=== PATIENT | female | born 1985 | race Caucasian/White ===

== ENCOUNTER 2017-01-02 12:45 | Inpatient (IN) ==
[2017-01-02] MEDS ORDERED: Aspirin 81 MG TAB.CHEW PO ONE (13:06)
[2017-01-02] MEDS ORDERED: 0.9 % Sodium Chloride 500 ML IVC ONE (13:06)
[2017-01-02] MEDS ORDERED: methylPREDNISolone 125 MG/2 ML VIAL IVP ONE (13:08)
[2017-01-02] MEDS ORDERED: Ipratropium/Albuterol Neb 3 ML IH ONE (13:09)
--- NOTE | 2017-01-02 13:13 | Emergency Department Note ---
Disposition Clinical Impression: SOB (shortness of breath), Elevated d-dimer, Elevated troponin Chest pain Qualifiers: Chest pain type: chest pain on breathing Qualified Code(s): R07.1 - Chest pain on breathing Disposition: Admitted As Inpatient Condition: Serious Time of Disposition: 14:49 Chest Pain HPI - General Chief Complaint: ED Chest Pain Stated Complaint: NURIS/ chest pain Time Seen by Provider: 01/02/17 12:48 Source: patient Vital Signs Reviewed: Yes Nursing Notes Reviewed: Yes - History of Present Illness HPI Narrative: Patient is a 31-year-old female with no past cardiac history presents with chest pain that started 12 hours ago and has history of asthma. Patient states that she started having an low sternal chest pain then started coughing. Patient states her chest pain is sharp 10 out of 10 without radiation to her neck or arms. Patient states her pain is worse with walking and better at rest. Patient states she feels short of breath with walking as well. Patient states that she has not taken her inhaler because she cannot find it. Patient states she was placed on control 2 months ago. Patient is on no other medications patient denies fever. Severity scale (1-10): 0 - Related Data Home Medications Medication Instructions Recorded Confirmed Albuterol Sulfate [Proair Hfa] 2 puff IH Q6H PRN 01/02/17 01/02/17 Beclomethasone Diprop 40mcg [Qvar 2 puff IH DAILY 01/02/17 01/02/17 40 mcg] Cetirizine HCl [Zyrtec] 10 mg PO DAILY 01/02/17 01/02/17 FLUoxetine HCl [Prozac] 20 mg PO DAILY 01/02/17 01/02/17 Fluticasone Propionate Nasal 2 spr NS DAILY 01/02/17 01/02/17 [Flonase] Lisinopril-HCTZ 10-12.5 [Prinzide 1 tab PO DAILY 01/02/17 01/02/17 10-12.5] Methocarbamol [Robaxin] 500 mg PO HS PRN 01/02/17 01/02/17 Norgestimate-Ethinyl Estradiol 1 tab PO DAILY 01/02/17 01/02/17 [Sprintec 28 Day Tablet] Topiramate [Topamax] 25 mg PO DAILY 01/02/17 01/02/17 Tramadol HCl [Ultram] 50 mg PO Q6H PRN 01/02/17 01/02/17 Allergies Allergy/AdvReac Type Severity Reaction Status Date / Time Penicillins Allergy Anaphylaxis Verified 01/02/17 14:08 All systems ED: reviewed and negative except as stated. Review of Systems: As Per HPI Constitutional: Denies: fever, chills, weakness Eyes: Denies: vision change ENT ED: Reports: congestion. Denies: ear pain Cardiovascular: Reports: chest pain, dyspnea on exertion. Denies: palpitations , syncope Respiratory: Reports: cough, dyspnea. Denies: wheezes, sputum production Gastrointestinal: Denies: abdominal pain, nausea, vomiting, diarrhea, hematemesis Genitourinary: Denies: urgency, dysuria Musculoskeletal: Denies: back pain, neck pain Integumentary: Denies: rash, abrasion Neurological: Denies: headache, weakness Psychiatric: Reports: anxiety. 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 - Social History Smoking Status: Never smoker Alcohol use: Reports: none Drug use: Reports: none Physical Exam - General Limitations: no limitations General appearance: alert, in no apparent distress - Head Head exam: atraumatic, normocephalic, normal inspection - Eye Eye exam: Present: normal appearance, PERRL, EOMI - ENT ENT exam: normal exam, normal oropharynx, mucous membranes moist - Neck Neck exam: Present: normal inspection, full ROM, trachea midline - Chest Chest inspection: Present: normal inspection, symmetric chest wall rise - Respiratory Respiratory exam: Present: other (No wheezing but lungs sound increased turbulence) - Cardiovascular Cardiovascular exam: Present: tachycardia, normal heart sounds - Abdominal Exam Abdominal exam: Present: soft, Non-Tender. Absent: tenderness, distention, guarding, rebound, rigidity - Extremities Exam Extremities exam: Present: normal inspection, full ROM, normal capillary refill. Absent: tenderness, pedal edema, calf tenderness - Back Exam Back exam: Present: normal inspection, full ROM. Absent: tenderness, CVA tenderness (R), CVA tenderness (L) - Neurological Exam Neurological exam: Present: alert, oriented X3, CN II-XII intact - Psychiatric Psychiatric exam: Present: normal affect, normal mood Course - Reevaluation(s) Reevaluation #1: Patient seen and examined, and DuoNeb's ordered, chest x-ray and ACS workup ordered. D-dimer ordered. O2 sats greater than 95 on room air. Time: 13:15 Reevaluation #2: Patient patient is doing well, workup continues patient's receiving fluids O2 sat greater than 95% on room air Time: 13:50 Reevaluation #3: D-dimer 03324 and troponin 0.18. Patient continues to be conversational dyspnea and says chest pain but 2/10 currently, patient's O2 sat is 97% Time: 14:30 - Consultations Consultation #1: Dr. Choi paper box cutter has accepted patient for admission to the ICU at 1448 hrs. Time: 14:49 Vital Signs Temperature 98.5 F 01/02/17 12:47 Pulse Rate 120 01/02/17 12:47 Respiratory Rate 22 01/02/17 12:47 Blood Pressure 134/97 01/02/17 12:47 O2 Sat by Pulse Oximetry 96 01/02/17 12:47 Temperature 97.7 F 01/02/17 19:40 Pulse Rate 81 01/02/17 21:00 Respiratory Rate 18 01/02/17 21:00 Blood Pressure 115/75 01/02/17 21:00 O2 Sat by Pulse Oximetry 97 01/02/17 21:00 Oxygen Delivery Oxygen Delivery Nasal Cannula Chest Pain - [facility] Narrative Medical decision making narrative: Patient with acute onset of sinus tachycardia chest pain and shortness of breath concerning for ACS/PE/aortic dissection, pneumonia, pneumothorax. Patient is tachycardic at rest and has conversational dyspnea. Only mathis into patient's history is possibly her control which was started 2 months ago. Otherwise patient has no prior medical history or risk factors except for hypertension. Patient is more concerning for PE at this time. We will perform ACS workup and run a d-dimer. Patient's d-dimer was elevated 11,709, and patient's troponin elevated 0.18. Patient continues to be conversationally dyspneic. Start patient on heparin and send patient for CTA. Disposition is to admit. Patient has bilateral PEs, patient will be admitted to ICU Patient was accepted for admittance to ICU by Dr. Choi the Exercise Equipment Specialist. - Lab Data Lab results reviewed: Yes I reviewed the patient's lab results. Lab results narrative: Short CBC 01/02/17 Range/Units 13:03 WBC 10.3 (4.3-11.1) K/mcL Hgb 14.0 (11.5-15.4) g/dL Hct 42.0 (35.3-44.9) % Plt Count 298 (140-400) K/mcL Neutrophils # 7.2 (1.6-8.9) K/mcL BMP 01/02/17 Range/Units 13:03 Sodium 138 (136-145) mEq/L Potassium 3.9 (3.5-4.5) mEq/L Chloride 107 (98-109) mEq/L Carbon Dioxide 23 (19-29) mEq/L BUN 14 (7-20) mg/dL Creatinine 1.05 (0.57-1.11) mg/dL Glucose 134 H (70-99) mg/dL Calcium 9.4 (8.6-10.8) mg/dL Cardiac Enzymes 01/02/17 Range/Units 13:03 Troponin I 0.18 H* (0-0.03) ng/mL Result diagrams: 01/02/17 14:05 01/02/17 13:03 Lab Results 01/02/17 01/02/17 01/02/17 Range/Units 13:03 13:03 13:03 WBC 10.3 (4.3-11.1) K/mcL RBC 4.95 (3.82-4.97) M/mcL Hgb 14.0 (11.5-15.4) g/dL Hct 42.0 (35.3-44.9) % MCV 84.8 (83.0-100.0) fL MCH 28.3 (28.0-33.3) pg MCHC 33.3 (31.6-35.5) g/dL RDW 12.1 (11.5-14.5) % Plt Count 298 (140-400) K/mcL MPV 10.1 (9.4-12.4) fL Immature Gran % 0.2 (0-4) % Seg Neutrophils % 69.4 % Lymphocytes % 22.4 % Monocytes % 5.7 % Eosinophils % 2.0 % Basophils % 0.3 % Neutrophils # 7.2 (1.6-8.9) K/mcL Lymphocytes # 2.3 (0.6-4.6) K/mcL Monocytes # 0.6 (0.0-1.3) K/mcL Eosinophils # 0.2 (0.0-0.6) K/mcL Basophils # 0.0 (0.0-0.2) K/mcL PT (9.4-12.1) Seconds INR APTT (26.0-36.0) Seconds D-Dimer (0-500) ng/mLFEU Sodium 138 (136-145) mEq/L Potassium 3.9 (3.5-4.5) mEq/L Chloride 107 (98-109) mEq/L Carbon Dioxide 23 (19-29) mEq/L BUN 14 (7-20) mg/dL Creatinine 1.05 (0.57-1.11) mg/dL Est GFR ( Amer) > 60 (> 60) Est GFR (Non-Af Amer) > 60 (> 60) BUN/Creatinine Ratio 13 (6-26) Glucose 134 H (70-99) mg/dL Calculated Osmolality 288 (280-300) Calcium 9.4 (8.6-10.8) mg/dL Phosphorus 1.8 L (2.3-4.7) mg/dL Magnesium 2.1 (1.6-2.6) mg/dL Troponin I 0.18 H* (0-0.03) ng/mL Serum , Qual (Negative) 01/02/17 01/02/17 01/02/17 Range/Units 13:03 14:05 14:05 WBC 10.7 (4.3-11.1) K/mcL RBC 4.70 (3.82-4.97) M/mcL Hgb 13.1 (11.5-15.4) g/dL Hct 40.0 (35.3-44.9) % MCV 85.1 (83.0-100.0) fL MCH 27.9 L (28.0-33.3) pg MCHC 32.8 (31.6-35.5) g/dL RDW 12.1 (11.5-14.5) % Plt Count 277 (140-400) K/mcL MPV 9.9 (9.4-12.4) fL Immature Gran % (0-4) % Seg Neutrophils % % Lymphocytes % % Monocytes % % Eosinophils % % Basophils % % Neutrophils # (1.6-8.9) K/mcL Lymphocytes # (0.6-4.6) K/mcL Monocytes # (0.0-1.3) K/mcL Eosinophils # (0.0-0.6) K/mcL Basophils # (0.0-0.2) K/mcL PT (9.4-12.1) Seconds INR APTT (26.0-36.0) Seconds D-Dimer 77412 H (0-500) ng/mLFEU Sodium (136-145) mEq/L Potassium (3.5-4.5) mEq/L Chloride (98-109) mEq/L Carbon Dioxide (19-29) mEq/L BUN (7-20) mg/dL Creatinine (0.57-1.11) mg/dL Est GFR ( Amer) (> 60) Est GFR (Non-Af Amer) (> 60) BUN/Creatinine Ratio (6-26) Glucose (70-99) mg/dL Calculated Osmolality (280-300) Calcium (8.6-10.8) mg/dL Phosphorus (2.3-4.7) mg/dL Magnesium (1.6-2.6) mg/dL Troponin I (0-0.03) ng/mL Serum , Qual Negative (Negative) 01/02/17 Range/Units 14:05 WBC (4.3-11.1) K/mcL RBC (3.82-4.97) M/mcL Hgb (11.5-15.4) g/dL Hct (35.3-44.9) % MCV (83.0-100.0) fL MCH (28.0-33.3) pg MCHC (31.6-35.5) g/dL RDW (11.5-14.5) % Plt Count (140-400) K/mcL MPV (9.4-12.4) fL Immature Gran % (0-4) % Seg Neutrophils % % Lymphocytes % % Monocytes % % Eosinophils % % Basophils % % Neutrophils # (1.6-8.9) K/mcL Lymphocytes # (0.6-4.6) K/mcL Monocytes # (0.0-1.3) K/mcL Eosinophils # (0.0-0.6) K/mcL Basophils # (0.0-0.2) K/mcL PT 11.1 (9.4-12.1) Seconds INR 1.0 APTT 28.0 (26.0-36.0) Seconds D-Dimer (0-500) ng/mLFEU Sodium (136-145) mEq/L Potassium (3.5-4.5) mEq/L Chloride (98-109) mEq/L Carbon Dioxide (19-29) mEq/L BUN (7-20) mg/dL Creatinine (0.57-1.11) mg/dL Est GFR ( Amer) (> 60) Est GFR (Non-Af Amer) (> 60) BUN/Creatinine Ratio (6-26) Glucose (70-99) mg/dL Calculated Osmolality (280-300) Calcium (8.6-10.8) mg/dL Phosphorus (2.3-4.7) mg/dL Magnesium (1.6-2.6) mg/dL Troponin I (0-0.03) ng/mL Serum , Qual (Negative) - Radiology Data Radiology results reviewed: Yes I reviewed the patient's radiology results. Chest X-Ray 01/02/17 13:06 IMPRESSION: 1. No active pulmonary disease. D/ / Ja Greenberg MD / Ja Greenberg MD Interpreting Provider: Ja Greenberg MD - EKG Data EKG attestation: Yes I reviewed and interpreted this EKG. EKG results narrative: EKG taken 01/02/2017 at 1252 hrs. shows a sinus tachycardia with no acute ST elevations or depressions in the leads, QRS widening or QT prolongation. No previous EKG for comparison. T-wave inversion in lead 3. Repeat EKG taken at 1347 hrs. shows sinus rhythm at 91 beats a minute alea elevations or depressions A leads no QRS widening or QT prolongation. Repeat EKG taken at 1520 and hours shows sinus tachycardia at 108 beats a minute no acute ST elevations any leads no QRS widening or QT prolongation there is T-wave inversion in lead 3 seen in all 3 EKGs. Heart Score - Score History: Slightly Suspicious EKG: Non Specific repolarisation Disturbance Age: Less than 45 Risk Factors: No risk factors known Troponin: Less than normal limit HEART Score Total: 1
[2017-01-02 13:16] LABS: Basophils % 0.3 %; Eosinophils # 0.2 K/mcL (0.0-0.6); Immature Granulocytes % 0.2 % (0-4); Lymphocytes # 2.3 K/mcL (0.6-4.6); Lymphocytes % 22.4 %; Mean Corpuscular HGB Conc 33.3 g/dL (31.6-35.5); Mean Corpuscular Hemoglobin 28.3 pg (28.0-33.3); Mean Corpuscular Volume 84.8 fL (83.0-100.0); Mean Platelet Volume 10.1 fL (9.4-12.4); Monocytes # 0.6 K/mcL (0.0-1.3); Monocytes % 5.7 %; Neutrophils # 7.2 K/mcL (1.6-8.9); Platelet Count 298 K/mcL (140-400); Red Blood Count 4.95 M/mcL (3.82-4.97); Red Cell Distribution Width 12.1 % (11.5-14.5); Segmented Neutrophils % 69.4 %
[2017-01-02 13:27] LABS: BUN/Creatinine Ratio 13 (6-26); Blood Urea Nitrogen 14 mg/dL (7-20); Calcium 9.4 mg/dL (8.6-10.8); Carbon Dioxide 23 mEq/L (19-29); Chloride 107 mEq/L (98-109); Glucose 134 mg/dL (70-99); Osmolality,Calculated 288 (280-300); Potassium 3.9 mEq/L (3.5-4.5); Sodium 138 mEq/L (136-145); eGFR For African Americans > 60 (> 60); eGFR For Non-African Americans > 60 (> 60)
--- NOTE | 2017-01-02 13:41 | Emergency Department Note ---
Disposition Clinical Impression: SOB (shortness of breath), Elevated d-dimer, Elevated troponin Chest pain Qualifiers: Chest pain type: other chest pain Qualified Code(s): R07.89 - Other chest pain Disposition: Admitted As Inpatient Condition: Serious General Adult HPI - General Chief complaint: ED Chest Pain Stated complaint: NURIS/ chest pain Time Seen by Provider: 01/02/17 12:48 Source: patient Limitations: no limitations Nursing Notes Reviewed: Yes Vital Signs Reviewed: Yes - History of Present Illness Pain Scale: 0 - Related Data Home Medications Medication Instructions Recorded Confirmed Albuterol Sulfate [Proair Hfa] 2 puff IH Q6H PRN 01/02/17 01/02/17 Beclomethasone Diprop 40mcg [Qvar 2 puff IH DAILY 01/02/17 01/02/17 40 mcg] Cetirizine HCl [Zyrtec] 10 mg PO DAILY 01/02/17 01/02/17 FLUoxetine HCl [Prozac] 20 mg PO DAILY 01/02/17 01/02/17 Fluticasone Propionate Nasal 2 spr NS DAILY 01/02/17 01/02/17 [Flonase] Lisinopril-HCTZ 10-12.5 [Prinzide 1 tab PO DAILY 01/02/17 01/02/17 10-12.5] Methocarbamol [Robaxin] 500 mg PO HS PRN 01/02/17 01/02/17 Norgestimate-Ethinyl Estradiol 1 tab PO DAILY 01/02/17 01/02/17 [Sprintec 28 Day Tablet] Topiramate [Topamax] 25 mg PO DAILY 01/02/17 01/02/17 Tramadol HCl [Ultram] 50 mg PO Q6H PRN 01/02/17 01/02/17 Allergies Allergy/AdvReac Type Severity Reaction Status Date / Time Penicillins Allergy Anaphylaxis Verified 01/02/17 14:08 Constitutional: Denies: fever, chills, weakness Eyes: Denies: vision change ENT ED: Reports: congestion. Denies: ear pain Cardiovascular: Reports: chest pain, dyspnea on exertion. Denies: palpitations , syncope Respiratory: Reports: cough, dyspnea. Denies: wheezes, sputum production Gastrointestinal: Denies: abdominal pain, nausea, vomiting, diarrhea, hematemesis Genitourinary: Denies: urgency, dysuria Musculoskeletal: Denies: back pain, neck pain Integumentary: Denies: rash, abrasion Neurological: Denies: headache, weakness Psychiatric: Reports: anxiety. 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 - Social History Smoking Status: Never smoker Smokeless Tobacco Status: No Alcohol use: Reports: none Drug use: Reports: none Physical Exam - General Limitations: no limitations General appearance: alert, in no apparent distress Course Vital Signs Temperature 98.5 F 01/02/17 12:47 Pulse Rate 120 01/02/17 12:47 Respiratory Rate 22 01/02/17 12:47 Blood Pressure 134/97 01/02/17 12:47 O2 Sat by Pulse Oximetry 96 01/02/17 12:47 Temperature 98.5 F 01/02/17 12:47 Pulse Rate 116 01/02/17 14:55 Respiratory Rate 22 01/02/17 14:55 Blood Pressure 123/87 01/02/17 14:55 O2 Sat by Pulse Oximetry 95 01/02/17 14:55 Oxygen Delivery Oxygen Delivery Room Air Medical Decision Making - MDM Narrative Medical decision making narrative: I examined this patient and my medical decision-making was reviewed with the Resident Physician. I agree with the documented findings, disposition and treatment plan as described except to the extent set forth below. Patient was seen and evaluated by Dr. Trammell and myself, I agree with his evaluation and management plan, supervised the care of the patient's stay. Patient was in today she has had some anxiousness feeling also some chest discomfort last 2 days no history of cardiac disease in the past no history of pulmonary embolism. She is tachycardic, and do a d-dimer on her since her well's criteria is low risk but she cannot be PEERC'd out, EKG chest x-ray and then reassess. She did get aspirin here has no calf tenderness. 1350 hrs.: Patient's troponin is negative her d-dimer is elevated also I think she probably does have a PE. In over the CT of her chest. And then she will need admission. Chest X-Ray 01/02/17 13:06 IMPRESSION: 1. No active pulmonary disease. D/ / Ja Greenberg MD / Ja Greenberg MD Interpreting Provider: Ja Greenberg MD 1440 hrs.: Patient's CTA is positive for large PE. We are started heparin on her. We will speak to the appellate law clerk and safety physician on her. She is in agreement with this plan. Impression is dyspnea with pulmonary embolism. Patient's critical care time exactly separately billable procedures is 50 minutes. 1500 hrs.: ICU team is coming down and seen the patient. They are agreeing with the admission. Asked add-on BNP, and also a stat echo, we spoke with the cardiac [place] [facility] for the echo. Spoke with cardiology, Dr. Lazaro Daley, and he is happy to read the echocardiogram. - Lab Data Result diagrams: 01/02/17 14:05 01/02/17 13:03 Lab Results 01/02/17 01/02/17 01/02/17 Range/Units 13:03 13:03 13:03 WBC 10.3 (4.3-11.1) K/mcL RBC 4.95 (3.82-4.97) M/mcL Hgb 14.0 (11.5-15.4) g/dL Hct 42.0 (35.3-44.9) % MCV 84.8 (83.0-100.0) fL MCH 28.3 (28.0-33.3) pg MCHC 33.3 (31.6-35.5) g/dL RDW 12.1 (11.5-14.5) % Plt Count 298 (140-400) K/mcL MPV 10.1 (9.4-12.4) fL Immature Gran % 0.2 (0-4) % Seg Neutrophils % 69.4 % Lymphocytes % 22.4 % Monocytes % 5.7 % Eosinophils % 2.0 % Basophils % 0.3 % Neutrophils # 7.2 (1.6-8.9) K/mcL Lymphocytes # 2.3 (0.6-4.6) K/mcL Monocytes # 0.6 (0.0-1.3) K/mcL Eosinophils # 0.2 (0.0-0.6) K/mcL Basophils # 0.0 (0.0-0.2) K/mcL PT (9.4-12.1) Seconds INR APTT (26.0-36.0) Seconds D-Dimer (0-500) ng/mLFEU Sodium 138 (136-145) mEq/L Potassium 3.9 (3.5-4.5) mEq/L Chloride 107 (98-109) mEq/L Carbon Dioxide 23 (19-29) mEq/L BUN 14 (7-20) mg/dL Creatinine 1.05 (0.57-1.11) mg/dL Est GFR ( Amer) > 60 (> 60) Est GFR (Non-Af Amer) > 60 (> 60) BUN/Creatinine Ratio 13 (6-26) Glucose 134 H (70-99) mg/dL Calculated Osmolality 288 (280-300) Calcium 9.4 (8.6-10.8) mg/dL Troponin I 0.18 H* (0-0.03) ng/mL Serum , Qual (Negative) 01/02/17 01/02/17 01/02/17 Range/Units 13:03 14:05 14:05 WBC 10.7 (4.3-11.1) K/mcL RBC 4.70 (3.82-4.97) M/mcL Hgb 13.1 (11.5-15.4) g/dL Hct 40.0 (35.3-44.9) % MCV 85.1 (83.0-100.0) fL MCH 27.9 L (28.0-33.3) pg MCHC 32.8 (31.6-35.5) g/dL RDW 12.1 (11.5-14.5) % Plt Count 277 (140-400) K/mcL MPV 9.9 (9.4-12.4) fL Immature Gran % (0-4) % Seg Neutrophils % % Lymphocytes % % Monocytes % % Eosinophils % % Basophils % % Neutrophils # (1.6-8.9) K/mcL Lymphocytes # (0.6-4.6) K/mcL Monocytes # (0.0-1.3) K/mcL Eosinophils # (0.0-0.6) K/mcL Basophils # (0.0-0.2) K/mcL PT (9.4-12.1) Seconds INR APTT (26.0-36.0) Seconds D-Dimer 74008 H (0-500) ng/mLFEU Sodium (136-145) mEq/L Potassium (3.5-4.5) mEq/L Chloride (98-109) mEq/L Carbon Dioxide (19-29) mEq/L BUN (7-20) mg/dL Creatinine (0.57-1.11) mg/dL Est GFR ( Amer) (> 60) Est GFR (Non-Af Amer) (> 60) BUN/Creatinine Ratio (6-26) Glucose (70-99) mg/dL Calculated Osmolality (280-300) Calcium (8.6-10.8) mg/dL Troponin I (0-0.03) ng/mL Serum , Qual Negative (Negative) 01/02/17 Range/Units 14:05 WBC (4.3-11.1) K/mcL RBC (3.82-4.97) M/mcL Hgb (11.5-15.4) g/dL Hct (35.3-44.9) % MCV (83.0-100.0) fL MCH (28.0-33.3) pg MCHC (31.6-35.5) g/dL RDW (11.5-14.5) % Plt Count (140-400) K/mcL MPV (9.4-12.4) fL Immature Gran % (0-4) % Seg Neutrophils % % Lymphocytes % % Monocytes % % Eosinophils % % Basophils % % Neutrophils # (1.6-8.9) K/mcL Lymphocytes # (0.6-4.6) K/mcL Monocytes # (0.0-1.3) K/mcL Eosinophils # (0.0-0.6) K/mcL Basophils # (0.0-0.2) K/mcL PT 11.1 (9.4-12.1) Seconds INR 1.0 APTT 28.0 (26.0-36.0) Seconds D-Dimer (0-500) ng/mLFEU Sodium (136-145) mEq/L Potassium (3.5-4.5) mEq/L Chloride (98-109) mEq/L Carbon Dioxide (19-29) mEq/L BUN (7-20) mg/dL Creatinine (0.57-1.11) mg/dL Est GFR ( Amer) (> 60) Est GFR (Non-Af Amer) (> 60) BUN/Creatinine Ratio (6-26) Glucose (70-99) mg/dL Calculated Osmolality (280-300) Calcium (8.6-10.8) mg/dL Troponin I (0-0.03) ng/mL Serum , Qual (Negative)
[2017-01-02] MEDS ORDERED: *HR* Heparin 5,000 UNIT/ML VIAL IVP ONE (13:57)
[2017-01-02] MEDS ORDERED: *HR* Heparin 5,000 UNIT/ML VIAL IVP PRN ×2 (13:57)
[2017-01-02] MEDS ORDERED: *HR* Morphine 2 MG/ML SYRINGE IVP PRN (14:02)
[2017-01-02] MEDS ORDERED: Ondansetron 4 MG/2 ML VIAL IVP ONE (14:03)
[2017-01-02 14:17] LABS: Prothrombin Time 11.1 Seconds (9.4-12.1)
[2017-01-02 14:19] LABS: Hemoglobin 13.1 g/dL (11.5-15.4); Mean Corpuscular HGB Conc 32.8 g/dL (31.6-35.5); Mean Corpuscular Hemoglobin 27.9 pg (28.0-33.3); Mean Corpuscular Volume 85.1 fL (83.0-100.0); Mean Platelet Volume 9.9 fL (9.4-12.4); Platelet Count 277 K/mcL (140-400); Red Cell Distribution Width 12.1 % (11.5-14.5)
[2017-01-02] MEDS: Heparin 25,000 UNIT/500 ML D5W 25,000 UNIT/500 ML MLS IVC SCH (14:45)
[2017-01-02] MEDS ORDERED: *HR* HYDROmorphone (PF) 1 MG/ML SYRINGE IVP ONE (15:26)
[2017-01-02] MEDS ORDERED: Naloxone 0.4 MG/ML INJ IVP PRN (15:36)
--- NOTE | 2017-01-02 15:49 | Electrocardiograph Report ---
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
--- NOTE | 2017-01-02 15:49 | Pulmonology History & Physical ---
<Lonny Shelley - Last Filed: 01/02/17 15:46> Date of Encounter: 01/02/17 Time of Encounter: 15:46 Assessment and Plan (1) Pulmonary embolism Current visit: Yes Status: Acute Patient is having shortness of breath, tachycardia, dyspnea at rest, and worsened during conversation, but is hemodynamically stable at this time. According to CT angiogram of the chest, this patient has bilateral pulmonary emboli. She is currently on a heparin drip. We will keep her on this, do coagulation studies to check for prothrombotic conditions. We will monitor her in the intensive care unit overnight. She does have an elevated troponin, evidence of right ventricular strain on echocardiogram. We will continue to trend her troponin every 6 hours. We have also ordered a BNP now, and we will repeat this in the morning. We are keeping her nothing by mouth overnight and will start IV Protonix for GI prophylaxis. We are also ordering bilateral Doppler ultrasound of the lower extremities. Qualifiers: Pulmonary embolism type: other Chronicity: acute Acute cor pulmonale presence: with acute cor pulmonale Qualified Code(s): I26.09 - Other pulmonary embolism with acute cor pulmonale (2) Elevated troponin Current visit: Yes Status: Acute See above (3) SOB (shortness of breath) Current visit: Yes Status: Acute This is secondary to the pulmonary embolism. She is currently on nasal cannula. We will adjust her oxygen based on her symptoms. (4) Chest pain Current visit: Yes Status: Acute See above Qualifiers: Chest pain type: chest pain on breathing Qualified Code(s): R07.1 - Chest pain on breathing; R07.81 - Pleurodynia (5) Elevated d-dimer Current visit: Yes Status: Acute See above History of Present Illness Chief complaint: Shortness of breath, chest pain HPI: Ms. Alvarenga is a 31 year old female with no past medical history presented to the emergency department today after experiencing 3 days of shortness of breath. She states that nothing like this has ever happened before. She does complain of some retrosternal chest pain that is more prominent upon inhalation. She denies any past medical history of blood clots, does admit to being on estrogen oral contraceptives, admits to recent travel of 3 hours to her family on Saturday. She states that the shortness of breath started immediately after arriving home after Saturday travel. Past Med Surg Social Fam HX - Past Medical History Medical history: no medical history Psychiatric history: no psych history - Social History Smoking Status: Never smoker Smokeless Tobacco Status: No Alcohol use: none Drug use: none Medications and Allergies Albuterol Sulfate [Proair Hfa] 2 puff IH Q6H PRN 01/02/17 [History] Beclomethasone Diprop 40mcg [Qvar 40 mcg] 2 puff IH DAILY 01/02/17 [History] Cetirizine HCl [Zyrtec] 10 mg PO DAILY 01/02/17 [History] FLUoxetine HCl [Prozac] 20 mg PO DAILY 01/02/17 [History] Fluticasone Propionate Nasal [Flonase] 2 spr NS DAILY 01/02/17 [History] Lisinopril-HCTZ 10-12.5 [Prinzide 10-12.5] 1 tab PO DAILY 01/02/17 [History] Methocarbamol [Robaxin] 500 mg PO HS PRN 01/02/17 [History] Norgestimate-Ethinyl Estradiol [Sprintec 28 Day Tablet] 1 tab PO DAILY 01/02/17 [History] Topiramate [Topamax] 25 mg PO DAILY 01/02/17 [History] Tramadol HCl [Ultram] 50 mg PO Q6H PRN 01/02/17 [History] Penicillins Allergy (Verified 01/02/17 14:08) Anaphylaxis All Systems: A 10-system review of systems was performed and is negative for pertinent findings except as documented above in the HPI. - Constitutional Constitutional: no fever(s), no headache(s), no lethargy - Cardiovascular Cardiovascular: chest pain (Retrosternal), dyspnea, dyspnea on exertion - Respiratory Respiratory: dyspnea, dyspnea on exertion, no cough, no hemoptysis - Gastrointestinal Gastrointestinal: no abdominal pain, no cramping, no diarrhea Physical Examination General appearance: appears uncomfortable, other (This is a 31-year-old female who is dyspneic at rest, and more so with conversation. She appears uncomfortable lying on the hospital bed.) Eyes: nonicteric ENT: oropharynx moist Neck: supple Effort: other (Appears to be in slight pain on inspiration) Inspection: normal Auscultation: bilateral: clear Cardiovascular: other (Telemetry: Sinus tachycardia with a rate of 115) Gastrointestinal: normoactive bowel sounds, soft, non-tender Integumentary: normal Extremities: no cyanosis, no edema, no clubbing, pink and warm, pulses normal, no ischemia or petechiae, other (No redness or warmth of the lower extremities. There is no tenderness to palpation of the calves. No palpable cords.) normal mental status, non-focal exam anxious Results - Laboratory Findings CBC and BMP: 01/02/17 14:05 01/02/17 13:03 PT/INR, D-dimer PT 11.1 Seconds (9.4-12.1) 01/02/17 14:05 D-Dimer 02444 ng/mLFEU (0-500) H 01/02/17 13:03 Abnormal lab findings: Abnormal lab results MCH 27.9 pg (28.0-33.3) L 01/02/17 14:05 D-Dimer 55965 ng/mLFEU (0-500) H 01/02/17 13:03 Glucose 134 mg/dL (70-99) H 01/02/17 13:03 Troponin I 0.18 ng/mL (0-0.03) H* 01/02/17 13:03 - Diagnostic Findings Chest x-ray: report reviewed, image reviewed CT scan - chest: report reviewed, image reviewed <Ashely Crowder - Last Filed: 01/02/17 16:45> Date of Encounter: 01/02/17 History of Present Illness HPI: Ms. Alvarenga is a 31 year old female All Systems: A 10-system review of systems was performed and is negative for pertinent findings except as documented above in the HPI. Physical Examination Vital Signs: Vital Signs, Last 4 Hours Resp BP 01/02/17 16:32 22 123/81 Results - Laboratory Findings CBC and BMP: 01/02/17 14:05 01/02/17 13:03 PT/INR, D-dimer PT 11.1 Seconds (9.4-12.1) 01/02/17 14:05 D-Dimer 96603 ng/mLFEU (0-500) H 01/02/17 13:03 Abnormal lab findings: Abnormal lab results MCH 27.9 pg (28.0-33.3) L 01/02/17 14:05 D-Dimer 36779 ng/mLFEU (0-500) H 01/02/17 13:03 Glucose 134 mg/dL (70-99) H 01/02/17 13:03 Troponin I 0.18 ng/mL (0-0.03) H* 01/02/17 13:03 - Attending Attestation I examined this patient and my medical decision-making was reviewed with the Resident Physician. I agree with the documented findings, disposition and treatment plan as described except to the extent set forth below. Patient seen and examined. I went to emergency room after her physician called to evaluate this patient. Labs, radiology, chart personally reviewed. 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 Patient still have dyspnea especially when she has a minimal activity. Reviewed the CAT scan and evidence of pulmonary embolism with pulmonary artery enlargement my reading and reviewed the echocardiogram at the bedside. I am concerned about this pulmonary embolism and explained to the patient gave her blood pressure started to drop then she will need thrombolytics and she understand that and also risks associated with that. Her blood clot could be related to her travel, however will need to do hypercoagulable workup. She is on heparin now and keep oxygen saturation around 92%. She will be monitored in ICU closely. Cardiovascular: stable blood pressure for now, she is tachycardic. GI: Nutrition per dietary and GI prophylaxis per routine Heme: DVT prophylaxis per routine. 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 ID: No evidence of infections Renal; urine out put and renal funtion reviewed Endorcine: blood glucose is monitored Lines: all lines checked and no evidence of infections Skin: skin care to prevent pressure ulcers per nursing routine care I spent 35 min of Critical Care time with this patient. It involved decision making of high complexity to assess, manipulate, and support vital organ system failure and/or to prevent further life threatening deterioration of the patient' s condition. The time involved in the performance of separately reportable procedures was not counted toward critical care time.
[2017-01-02] MEDS ORDERED: Calcium Gluconate 1,000 MG in D5% in Water 100 ML IVPB PRN (16:50)
[2017-01-02] MEDS ORDERED: Magnesium Sulfate 2 GM in D5% in Water 100 ML IVPB PRN (16:50)
[2017-01-02] MEDS ORDERED: Potassium Phosphate 44 MEQ in 0.9 % Sodium Chloride 250 ML IVPB PRN (16:50)
[2017-01-02] MEDS: *HR* Morphine 2 MG/ML SYRINGE IVP PRN ×2 (17:18→20:45)
[2017-01-02 18:48] LABS: Magnesium 2.1 mg/dL (1.6-2.6); Phosphorous 1.8 mg/dL (2.3-4.7)
[2017-01-03 02:55] LABS: Basophils % 0.1 %; Eosinophils % 0.1 %; Hematocrit 38.9 % (35.3-44.9); Hemoglobin 12.8 g/dL (11.5-15.4); Immature Granulocytes % 0.4 % (0-4); Lymphocytes # 1.1 K/mcL (0.6-4.6); Lymphocytes % 9.6 %; Mean Corpuscular HGB Conc 32.9 g/dL (31.6-35.5); Mean Corpuscular Hemoglobin 28.1 pg (28.0-33.3); Mean Corpuscular Volume 85.5 fL (83.0-100.0); Mean Platelet Volume 10.1 fL (9.4-12.4); Monocytes # 0.1 K/mcL (0.0-1.3); Monocytes % 1.1 %; Neutrophils # 10.1 K/mcL (1.6-8.9); Platelet Count 266 K/mcL (140-400); Red Blood Count 4.55 M/mcL (3.82-4.97); Red Cell Distribution Width 12.1 % (11.5-14.5); Segmented Neutrophils % 88.7 %
[2017-01-03 03:01] LABS: INR 1.1; Prothrombin Time 11.4 Seconds (9.4-12.1)
[2017-01-03 03:02] LABS: Ionized Calcium 1.13 mmol/L (1.15-1.35)
[2017-01-03 03:03] LABS: Activated Partial Thrombo Time 58.8 Seconds (26.0-36.0)
[2017-01-03 03:08] LABS: BUN/Creatinine Ratio 16 (6-26); Blood Urea Nitrogen 13 mg/dL (7-20); Calcium 9.1 mg/dL (8.6-10.8); Carbon Dioxide 22 mEq/L (19-29); Chloride 106 mEq/L (98-109); Glucose 216 mg/dL (70-99); Magnesium 2.1 mg/dL (1.6-2.6); Osmolality,Calculated 283 (280-300); Phosphorous 2.7 mg/dL (2.3-4.7); Potassium 4.3 mEq/L (3.5-4.5); Sodium 133 mEq/L (136-145); eGFR For African Americans > 60 (> 60); eGFR For Non-African Americans > 60 (> 60)
--- NOTE | 2017-01-03 08:03 | Pulmonology Progress Note ---
<Lonny Shelley - Last Filed: 01/03/17 12:41> Date of Encounter: 01/03/17 Time of Encounter: 08:01 Assessment and Plan (1) Pulmonary embolism Current Visit: Yes Status: Acute She is currently on a heparin drip for treatment of her pulmonary embolism. At this time, I think it is reasonable to start Elequis for outpatient treatment of her pulmonary embolism. We will stop her heparin at 1700 today, and start her on L Oquist 10 mg every 12 for the next 5 days. I will then taper her down to 5 mg every 12. She is on oral contraceptive therapy at this time. I will have her follow up with her SLD EDUCATIONAL AIDE regarding discontinuing forms of exogenous estrogen. We are still awaiting for her hypercoagulable state to come back. She is currently dyspneic in conversation, but no longer on nasal cannula. Her oxygen saturation is currently at 99. She understands that with a diagnosis of a pulmonary pleasant, she may still be dyspneic upon exertion. We will plan on getting her up and moving around today. We will transfer her [facility] of [facility] and I will follow her tomorrow morning on the floor to make sure she is receiving her Eliquis and is doing well. Her troponins are trending downward which is a good sign. She remains hemodynamically stable and is no longer tachycardic. After her hospital stay, I will have her follow-up with pulmonology outpatient. Qualifiers: Pulmonary embolism type: other Chronicity: acute Acute cor pulmonale presence: with acute cor pulmonale Qualified Code(s): I26.09 - Other pulmonary embolism with acute cor pulmonale (2) Elevated troponin Current Visit: Yes Status: Acute See above (3) SOB (shortness of breath) Current Visit: Yes Status: Acute This is secondary to the pulmonary embolism. She is currently on nasal cannula. We will adjust her oxygen based on her symptoms. (4) Chest pain Current Visit: Yes Status: Acute See above Qualifiers: Chest pain type: chest pain on breathing Qualified Code(s): R07.1 - Chest pain on breathing; R07.81 - Pleurodynia (5) Elevated d-dimer Current Visit: Yes Status: Acute See above Subjective Principal diagnosis: Pulmonary Embolism Interval history: Patient states that she is feeling a little better from yesterday. However, she still has a mild retrosternal chest pain and shortness of breath that is worse with herself and deeply. She had no events overnight. Objective PUL Vital signs: Last Vital Signs Temp 97.9 F 01/03/17 03:50 Pulse 73 01/03/17 06:20 Resp 18 01/03/17 06:20 BP 108/77 01/03/17 06:20 Pulse Ox 96 01/03/17 06:20 General appearance: alert, other (Pleasant 31-year-old female who is dyspneic in conversation.) Eyes: nonicteric ENT: oropharynx moist Effort: normal Auscultation: bilateral: clear Cardiovascular: regular rate and rhythm Gastrointestinal: normoactive bowel sounds Integumentary: normal Extremities: no cyanosis, no edema, no clubbing, pink and warm, pulses normal, no ischemia or petechiae Musculoskeletal: no deformities normal mental status, non-focal exam, pupils equal and round mood appropriate, affect normal Results - Laboratory Findings CBC and BMP: 01/03/17 02:24 01/03/17 02:24 PT/INR, D-dimer PT 11.4 Seconds (9.4-12.1) 01/03/17 02:24 D-Dimer 31893 ng/mLFEU (0-500) H 01/02/17 13:03 Abnormal lab findings: Abnormal lab results WBC 11.4 K/mcL (4.3-11.1) H 01/03/17 02:24 Neutrophils # 10.1 K/mcL (1.6-8.9) H 01/03/17 02:24 APTT 58.8 Seconds (26.0-36.0) H 01/03/17 02:24 D-Dimer 01437 ng/mLFEU (0-500) H 01/02/17 13:03 Sodium 133 mEq/L (136-145) L 01/03/17 02:24 Glucose 216 mg/dL (70-99) H 01/03/17 02:24 POC Glucose 163 (58-89) H 01/02/17 16:48 Ionized Calcium 1.13 mmol/L (1.15-1.35) L 01/03/17 02:24 Troponin I 0.19 ng/mL (0-0.03) H* 01/03/17 02:24 B-Natriuretic Peptide 170 pg/mL (0-100) H 01/03/17 02:24 - Clinical Findings Intake & Output: Intake & Output 01/02/17 01/03/17 01/03/17 23:59 07:59 15:59 Intake Total 150 / 150 185 / 185 Output Total 0 / 0 600 / 600 Balance 150 / 150 -415 / -415 Weight 89.2 kg Consult Discharge Plan - Plan Referrals: Alissa Blake, BIOLOGICAL SCIENCES PROFESSOR [Primary Care Provider] - <Ashely Crowder - Last Filed: 01/03/17 16:25> Date of Encounter: 01/03/17 Objective PUL Vital signs: Last Vital Signs Temp 98.1 F 01/03/17 11:35 Pulse 97 01/03/17 15:53 Resp 24 01/03/17 15:53 BP 122/87 01/03/17 15:53 Pulse Ox 94 01/03/17 15:53 Results - Laboratory Findings CBC and BMP: 01/03/17 02:24 01/03/17 02:24 PT/INR, D-dimer PT 11.4 Seconds (9.4-12.1) 01/03/17 02:24 D-Dimer 35169 ng/mLFEU (0-500) H 01/02/17 13:03 Abnormal lab findings: Abnormal lab results WBC 11.4 K/mcL (4.3-11.1) H 01/03/17 02:24 Neutrophils # 10.1 K/mcL (1.6-8.9) H 01/03/17 02:24 APTT 66.5 Seconds (26.0-36.0) H 01/03/17 09:53 D-Dimer 32136 ng/mLFEU (0-500) H 01/02/17 13:03 Sodium 133 mEq/L (136-145) L 01/03/17 02:24 Glucose 216 mg/dL (70-99) H 01/03/17 02:24 POC Glucose 163 (58-89) H 01/02/17 16:48 Ionized Calcium 1.13 mmol/L (1.15-1.35) L 01/03/17 02:24 Troponin I 0.10 ng/mL (0-0.03) H* 01/03/17 09:53 B-Natriuretic Peptide 170 pg/mL (0-100) H 01/03/17 02:24 - Clinical Findings Intake & Output: Intake & Output 01/03/17 01/03/17 01/03/17 07:59 15:59 23:59 Intake Total 185 / 185 919 / 919 Output Total 600 / 600 600 / 600 Balance -415 / -415 319 / 319 - Attending Attestation I examined this patient and my medical decision-making was reviewed with the Resident Physician. I agree with the documented findings, disposition and treatment plan as described except to the extent set forth below. Patient seen and examined. Labs, radiology, chart personally reviewed. 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 Patient is doing better and we will check oxygen saturation on mobilization. Explained to patient about anticoagulation and workup for the hypercoagulable condition. We discussed about what anticoagulant would be better and I recommended new anticoagulant and she agreed. She also understand she should not be and to change estrogen as a barrier and consider other method such as IUD and she will follow up with her SLD EDUCATIONAL AIDE. I have advised her to have sleep apnea study as outpatient. Patient will follow up with her primary care and will be happy to see her for follow-up if she preferred to do that. Cardiovascular: stable. Echocardiogram reviewed. GI: Nutrition per dietary and GI prophylaxis per routine Heme: DVT prophylaxis per routine ID: No evidence of infections. Renal; urine out put and renal funtion reviewed Endorcine: blood glucose is monitored Lines: all lines checked and no evidence of infections Skin: skin care to prevent pressure ulcers per nursing routine care Patient is stable to be transferred to the floor.
[2017-01-03] MEDS: *HR* Morphine 2 MG/ML SYRINGE IVP PRN (08:31)
[2017-01-03] MEDS ORDERED: Pantoprazole 40 MG VIAL IVP SCH (09:00)
[2017-01-03] MEDS: Heparin 25,000 UNIT/500 ML D5W 25,000 UNIT/500 ML MLS IVC SCH (09:51)
--- NOTE | 2017-01-03 15:19 | Electrocardiograph Report ---
[address] [place] [address] Test Date: 2017-01-02 Pat Name: Lu Alvarenga Department: 0 Room: [facility] Gender: F Flow Coordinator: Maira : 1985 Requested By: Anthony Trammell Order Number: [id number] Reading MD: Christiano Posey MD Measurements Intervals [place] Rate: 91 P: 37 [place]: 153 QRS: -3 QRSD: 89 T: 17 QT: 352 QTc: 401 Interpretive Statements SINUS RHYTHM Poor R wave progression Electronically Signed On 01-03-2017 15:17:24 EDT by Christiano Posey MD
--- NOTE | 2017-01-03 15:20 | Electrocardiograph Report ---
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
[2017-01-03] MEDS ORDERED: *HR* Morphine 2 MG/ML SYRINGE IVP PRN (15:57)
[2017-01-03] MEDS ORDERED: Magnesium Sulfate 2 GM in D5% in Water 100 ML IVPB PRN (17:16)
[2017-01-03] MEDS ORDERED: Calcium Gluconate 1,000 MG in D5% in Water 100 ML IVPB PRN (17:16)
[2017-01-03] MEDS ORDERED: Potassium Phosphate 44 MEQ in 0.9 % Sodium Chloride 250 ML IVPB PRN (17:16)
[2017-01-03] MEDS ORDERED: Naloxone 0.4 MG/ML INJ IVP PRN (17:16)
[2017-01-03] MEDS: APIXABAN 5 MG TABLET PO SCH (17:38)
[2017-01-03] MEDS ORDERED: APIXABAN 5 MG TABLET PO SCH (18:00)
[2017-01-03] MEDS ORDERED: Acetaminophen 325 MG TABLET PO PRN (22:19)
[2017-01-04] MEDS: APIXABAN 5 MG TABLET PO SCH ×2 (05:22→16:02)
[2017-01-04 06:21] LABS: Basophils % 0.3 %; Eosinophils # 0.1 K/mcL (0.0-0.6); Eosinophils % 1.5 %; Hematocrit 35.1 % (35.3-44.9); Hemoglobin 11.5 g/dL (11.5-15.4); Immature Granulocytes % 0.3 % (0-4); Lymphocytes % 31.7 %; Mean Corpuscular HGB Conc 32.8 g/dL (31.6-35.5); Mean Corpuscular Hemoglobin 28.8 pg (28.0-33.3); Mean Platelet Volume 10.5 fL (9.4-12.4); Monocytes # 0.5 K/mcL (0.0-1.3); Monocytes % 4.9 %; Neutrophils # 5.7 K/mcL (1.6-8.9); Platelet Count 199 K/mcL (140-400); Red Blood Count 3.99 M/mcL (3.82-4.97); Red Cell Distribution Width 12.6 % (11.5-14.5); Segmented Neutrophils % 61.3 %
[2017-01-04 06:32] LABS: BUN/Creatinine Ratio 23 (6-26); Blood Urea Nitrogen 20 mg/dL (7-20); Calcium 8.7 mg/dL (8.6-10.8); Carbon Dioxide 25 mEq/L (19-29); Chloride 106 mEq/L (98-109); Glucose 114 mg/dL (70-99); Osmolality,Calculated 285 (280-300); Sodium 136 mEq/L (136-145); eGFR For African Americans > 60 (> 60); eGFR For Non-African Americans > 60 (> 60)
--- NOTE | 2017-01-04 06:57 | Venous Imaging Report ---
LE Venous Duplex Patient Name:Lu Alvarenga Order Number:[id number] Procedure Date:01/02/2017 Date:1985Age:31 yrs Gender:Female Location:[facility] Room #: IC8 Industrial Maintenance Mechanic:Bryanna Chavarria RDCS Referring MD:Lonny Shelley DO education reviewer:Alissa Blake, MANAGER STUDY Reading MD:Jj Ventura MD Primary Indications:Possible DVT Secondary Indications: Impressions: Normal bilateral lower extremity deep and superficial venous exam. Findings Prior Study: No prior study available for comparison. Lower Extremity Venous Duplex Side Vein Compress Spontaneous Flow Augment Diameter (cm) Depth (cm) Right Distal Iliac Normal Yes Phasic Yes Right Common Femoral Normal Yes Phasic Yes Right Superficial Femoral Normal Yes Phasic Yes Right Popliteal Normal Yes Phasic Yes Right Posterior Tibial Normal Yes Phasic Yes Right Peroneal Normal Yes Phasic Yes Right Saphenofemoral [place] Normal Yes Phasic Yes Right Great Saphenous Normal Yes Phasic Yes Right Lesser Saphenous Normal Yes Phasic Yes Left Distal Iliac Normal Yes Phasic Yes Left Common Femoral Normal Yes Phasic Yes Left Superficial Femoral Normal Yes Phasic Yes Left Popliteal Normal Yes Phasic Yes Left Posterior Tibial Normal Yes Phasic Yes Left Peroneal Normal Yes Phasic Yes Left Saphenofemoral [place] Normal Yes Phasic Yes Left Great Saphenous Normal Yes Phasic Yes Left Lesser Saphenous Normal Yes Phasic Yes Updated by Jj Ventura MD on 01/04/2017 6:49:44 AM electronically signed on 01/04/2017 6:50:04 AM with status of Final
--- NOTE | 2017-01-04 08:06 | Pulmonology Progress Note ---
<Lonny Shelley - Last Filed: 01/04/17 08:22> Date of Encounter: 01/04/17 Time of Encounter: 08:04 Assessment and Plan (1) Pulmonary embolism Current Visit: Yes Status: Acute This is her first full day on Eliquis 10 mg every 12 hours. We will continue this for the next 7 days. Afterwards, we will taper her down to 5 mg Eliquis every 12 hours and continue this outpatient. She should have a card for a free 30 day supply of Eliquis as well as a $10 co-pay after that. Clinically, I think she has improved tremendously over the last 2 days. She is currently hemodynamically stable, she is ambulating better, her oxygen saturation is 97% on room air. She also does not currently have any chest pain. 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 However, I did explain to her that activity and ambulation is very important. We are still awaiting her labs regarding hypercoagulable disorders. These should be followed up with outpatient. Also, I have recommended that she stop her oral contraceptive pill at this time and follow-up with her FACTORY ENGINEER regarding alternative control methods. After her hospital stay, I will have her follow-up with pulmonology outpatient. Qualifiers: Pulmonary embolism type: other Chronicity: acute Acute cor pulmonale presence: with acute cor pulmonale Qualified Code(s): I26.09 - Other pulmonary embolism with acute cor pulmonale (2) Elevated troponin Current Visit: Yes Status: Acute See above (3) SOB (shortness of breath) Current Visit: Yes Status: Acute See above (4) Chest pain Current Visit: Yes Status: Acute See above Qualifiers: Chest pain type: chest pain on breathing Qualified Code(s): R07.1 - Chest pain on breathing; R07.81 - Pleurodynia (5) Elevated d-dimer Current Visit: Yes Status: Acute See above Subjective Principal diagnosis: Pulmonary Embolism Interval history: Patient states that she is feeling a little better from yesterday. She states that she is able to ambulate more without her pulse racing as it did yesterday. She states that she does not feel as short of breath. Objective PUL Vital signs: Last Vital Signs Temp 98.5 F 01/04/17 04:28 Pulse 79 01/04/17 04:28 Resp 17 01/04/17 04:28 BP 106/67 01/04/17 04:28 Pulse Ox 92 01/04/17 04:28 General appearance: no acute distress, other (Patient appears to be comfortable , mildly dyspneic in conversation and not on nasal cannula ) Results - Laboratory Findings CBC and BMP: 01/04/17 05:07 01/04/17 05:07 PT/INR, D-dimer PT 11.4 Seconds (9.4-12.1) 01/03/17 02:24 D-Dimer 54880 ng/mLFEU (0-500) H 01/02/17 13:03 Abnormal lab findings: Abnormal lab results Hct 35.1 % (35.3-44.9) L 01/04/17 05:07 APTT 66.5 Seconds (26.0-36.0) H 01/03/17 09:53 D-Dimer 33470 ng/mLFEU (0-500) H 01/02/17 13:03 Glucose 114 mg/dL (70-99) H 01/04/17 05:07 POC Glucose 163 (58-89) H 01/02/17 16:48 Ionized Calcium 1.13 mmol/L (1.15-1.35) L 01/03/17 02:24 Troponin I 0.10 ng/mL (0-0.03) H* 01/03/17 09:53 B-Natriuretic Peptide 170 pg/mL (0-100) H 01/03/17 02:24 - Clinical Findings Intake & Output: Intake & Output 01/03/17 01/04/17 01/04/17 23:59 07:59 15:59 Intake Total 220 / 220 Balance 220 / 220 Weight 88.8 kg 87.815 kg Consult Discharge Plan - Plan Referrals: Alissa Blake, CLINIC COORDINATOR [Primary Care Provider] - <Ashely Crowder - Last Filed: 01/04/17 09:38> Date of Encounter: 01/04/17 Objective PUL Vital signs: Last Vital Signs Temp 98.2 F 01/04/17 08:04 Pulse 71 01/04/17 08:04 Resp 18 01/04/17 08:04 BP 116/77 01/04/17 08:04 Pulse Ox 95 01/04/17 08:04 Results - Laboratory Findings CBC and BMP: 01/04/17 05:07 01/04/17 05:07 PT/INR, D-dimer PT 11.4 Seconds (9.4-12.1) 01/03/17 02:24 D-Dimer 24302 ng/mLFEU (0-500) H 01/02/17 13:03 Abnormal lab findings: Abnormal lab results Hct 35.1 % (35.3-44.9) L 01/04/17 05:07 APTT 66.5 Seconds (26.0-36.0) H 01/03/17 09:53 D-Dimer 74231 ng/mLFEU (0-500) H 01/02/17 13:03 Glucose 114 mg/dL (70-99) H 01/04/17 05:07 POC Glucose 163 (58-89) H 01/02/17 16:48 Ionized Calcium 1.13 mmol/L (1.15-1.35) L 01/03/17 02:24 Troponin I 0.10 ng/mL (0-0.03) H* 01/03/17 09:53 B-Natriuretic Peptide 170 pg/mL (0-100) H 01/03/17 02:24 - Clinical Findings Intake & Output: Intake & Output 01/03/17 01/04/17 01/04/17 23:59 07:59 15:59 Intake Total 220 / 220 120 / 120 Balance 220 / 220 120 / 120 Weight 88.8 kg 87.815 kg - Attending Attestation I examined this patient and my medical decision-making was reviewed with the Resident Physician. I agree with the documented findings, disposition and treatment plan as described except to the extent set forth below. Patient seen and examined. Labs, radiology, chart personally reviewed. 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 Same recommendation to has before. Patient to follow-up as outpatient and will give her inflammations. I will order sleep study for her to be done as outpatient. Cardiovascular: stable GI: Nutrition per dietary and GI prophylaxis per routine Heme: DVT prophylaxis per routine. Patient is on anticoagulation and follow-up with FACTORY ENGINEER regarding changing contraceptives. Please call for questions.
[2017-01-04 08:07] VITALS: BP 116/77
[2017-01-04] MEDS ORDERED: Pantoprazole 40 MG VIAL IVP SCH (09:00)
[2017-01-04] MEDS ORDERED: Topiramate 25 MG CAP.SPRINK PO SCH ×3 (09:00→21:00)
[2017-01-04] MEDS ORDERED: FLUoxetine 20 MG CAPSULE PO SCH ×2 (09:00)
--- NOTE | 2017-01-04 11:49 | Discharge Summary ---
<Stuart Guallpa - Last Filed: 01/04/17 14:34> Date of Encounter: 01/04/17 Time of Encounter: 11:43 - Discharge Diagnosis (1) Pulmonary embolism Priority: Primary Status: Acute Qualifiers: Pulmonary embolism type: other Chronicity: acute Acute cor pulmonale presence: with acute cor pulmonale Qualified Code(s): I26.09 - Other pulmonary embolism with acute cor pulmonale - Discharge Medications Prescriptions: Apixaban [Eliquis] 10 mg PO Q12H #28 tab Home Medications: Albuterol Sulfate [Proair Hfa] 2 puff IH Q6H PRN 01/02/17 [History] Beclomethasone Diprop 40mcg [QVAR 40 mcg] 2 puff IH DAILY 01/02/17 [History] Cetirizine HCl [Zyrtec] 10 mg PO DAILY 01/02/17 [History] FLUoxetine HCl [Prozac] 20 mg PO DAILY 01/02/17 [History] Fluticasone Propionate Nasal [Flonase] 2 spr NS DAILY 01/02/17 [History] Lisinopril-HCTZ 10-12.5 [Prinzide 10-12.5] 1 tab PO DAILY 01/02/17 [History] Methocarbamol [Robaxin] 500 mg PO HS PRN 01/02/17 [History] Topiramate [Topamax] 25 mg PO DAILY 01/02/17 [History] Tramadol HCl [Ultram] 50 mg PO Q6H PRN 01/02/17 [History] Apixaban [Eliquis] 10 mg PO Q12H #28 tab 01/04/17 [Rx] Allergies/Adverse Reactions: 3 Allergy/AdvReac Type Severity Reaction Status Date / Time Penicillins Allergy Anaphylaxis Verified 01/02/17 14:08 Procedures/tests Complete & Pending: Procedures Performed prior 72 hours Category Date Time Status EKG [ECG 12 lead ECG] [ECG] Stat Y 01/02/17 15:27 Completed Venous Doppler [EV venous imaging LE BI] Routine Y 01/02/17 15:55 Completed Date of admission: 01/02/17 15:18 Primary care physician: Alissa Blake CNP Consults: 01/02/17 15:43 Consult to Critical Care [CONS] Stat Consulting Provider: [facility] [place] Reason for Consult: PE Time Notified: 15:43 Call Completed: Yes 01/02/17 16:59 Consult to Nutrition [CONS] Routine Comment: Consulting Provider: NUTRITION Reason for Dietary Consult: MST Score Consult to Injection Molding Machine Setter [CONS] Routine Reason for SW Consult: Financial concerns 01/03/17 08:47 Consult to Injection Molding Machine Setter [CONS] Routine Reason for SW Consult: What agents for oral anticoagulation therapy will be covered by her insurance? - Patient Status Disposition: Home, Self-Care Condition: Serious - Discharge Instructions Follow Up With: Alissa Blake CNP [Primary Care Provider] - 01/11/17 1:00 pm (Please folow up as schedule..) Otoniel Varela MD [Partnered Physician] - 01/23/17 3:30 pm (bring photo ID, insurance card and arrive 15 minutes early, if need to reschedule you must give a 24hr notice or they will not accept you in the office again.) Cyn Choi MD [Partnered Physician] - 01/09/17 11:00 am (Please follow up as schedule..) - Diet and Activity Activity: increase activity as tolerated Diet: advance to your usual diet Hospital course: Ms. Alvarenga is a 31 year old female who was admitted for SOB which was discovered to be bilateral massive PE. Two months ago patient was prescribed Sprintec estrogen control. In november she went to urgent care with breathing issues and dx as bronchitis prescribed abx without improvement. Patien was at PCP on Saturday Alissa Ann and she was sent to ED. Pain was sharp midsternal with SOB on exertion. On admission T98.5, HR 120, RR 22, BP 134/97, 96%. CXR showed no active pulmonary disease. CTA was positive for bilateral large PE. Trop 0.47, 0.10. BNP 170, and D-Dimer [id number]. She was started on heparin and admitted to ICU. She was admitted to floor on 01/03 and heparin discontinued and Eliquis 10 mg q12 hours. She was given her first two doses on day of discharge and discharged with a prescribtion for 7 days Eliquis 10 mg q12 hours. Patient to follow up with PCP, pulm, and OBGYN. Per Pulm after current Rx of eliquis, taper down to 5 mg Eliquis every 12 hours. Hypercoagulable disorder labs to FU outpaitent. OBGYN to prescribe non-estrogen control - Time Spent with Patient Total time spent providing and/or coordinating discharge services: - Constitutional Vitals: Temp Pulse Resp BP Pulse Ox 98.2 F 71 18 116/77 95 01/04/17 08:04 01/04/17 08:04 01/04/17 08:04 01/04/17 08:04 01/04/17 08:04 General appearance: Present: A&O X 3 - Respiratory Respiratory exam: Present: CTAB. Absent: accessory muscle use, rales, rhonchi, wheezes - Cardiovascular Cardiovascular exam: Present: RRR, +S1, +S2. Absent: diastolic murmur, gallop, rubs, systolic murmur - GI/Abdominal GI/Abdominal exam: Present: normal bowel sounds, soft, no peritoneal signs. Absent: distended, tenderness - Neurological Exam Neurological exam: Present: alert, oriented X3 - Psychiatric Psychiatric exam: Present: normal affect, normal mood <Lucy,Jeb P - Last Filed: 01/04/17 20:30> Date of Encounter: 01/04/17 Procedures/tests Complete & Pending: Procedures Performed prior 72 hours Category Date Time Status EKG [ECG 12 lead ECG] [ECG] Stat Y 01/02/17 15:27 Completed Venous Doppler [EV venous imaging LE BI] Routine Y 01/02/17 15:55 Completed Date of admission: 01/02/17 15:18 Primary care physician: Alissa Blake CNP Consults: 01/02/17 15:43 Consult to Critical Care [CONS] Stat Consulting Provider: [facility] [place] Reason for Consult: PE Time Notified: 15:43 Call Completed: Yes 01/02/17 16:59 Consult to Nutrition [CONS] Routine Comment: Consulting Provider: NUTRITION Reason for Dietary Consult: MST Score Consult to Injection Molding Machine Setter [CONS] Routine Reason for SW Consult: Financial concerns 01/03/17 08:47 Consult to Injection Molding Machine Setter [CONS] Routine Reason for SW Consult: What agents for oral anticoagulation therapy will be covered by her insurance? Hospital course: Ms. Alvarenga is a 31 year old female - Time Spent with Patient Total time spent providing and/or coordinating discharge services: - Constitutional Vitals: Temp Pulse Resp BP Pulse Ox 98.2 F 71 18 116/77 95 01/04/17 08:04 01/04/17 08:04 01/04/17 08:04 01/04/17 08:04 01/04/17 08:04 - Attending Attestation I examined this patient and my medical decision-making was reviewed with the Resident Physician. I agree with the documented findings, disposition and treatment plan as described except to the extent set forth below.
[2017-01-06 08:03] LABS: Protein C, Functional 178 % (83-168); Protein S, Functional 103 % (57-131)
[2017-01-06 08:43] LABS: Antithrombin III, Activity 108 % (76-128)
[2017-01-07 17:50] LABS: FACV Specimen WHOLE BLOOD
[2017-01-07 18:14] LABS: Prothrombin G20210A Specimen WHOLE BLOOD
[2017-01-08 09:14] LABS: Fac V Leiden R506Q Mut Result HETEROZYGOUS
[2017-01-08 09:15] LABS: Prothrombin G20210A Mut Result NEGATIVE
[2017-01-15 07:56] LABS: Antiphospholipid IgG High Spec 4 GPL (0-14); Antiphospholipid IgM High Spec 6 MPL (0-14)
[2017-01-18 07:24] LABS: Homocysteine 8 umol/L (<=10)
== END 2017-01-04 16:40 | disposition home or self-care (01) | DRG 175 ==
LOC: EMEROO 12:45 → ICNU 15:18 → 2ANU 01-03 18:23
PROVIDERS: ADMIT Internal Medicine Pulmonary Disease; ATTEND Internal Medicine Pulmonary Disease

== ENCOUNTER 2017-09-23 06:15 | Inpatient (IN) ==
[2017-09-23] MEDS ORDERED: Clindamycin 900 MG/50 ML 900 MG/50 ML IV.SOLN IVPB ONE (06:38)
[2017-09-23] MEDS ORDERED: Albuterol 2.5 MG/3 ML NEBULIZER IH ONE (06:40)
[2017-09-23] MEDS ORDERED: Albuterol 2.5 MG/3 ML NEBULIZER ONE (06:42)
[2017-09-23] MEDS: Ringers Solution, Lactated 1,000 ML IVC SCH ×2 (06:46→13:33)
[2017-09-23] MEDS ORDERED: Scopolamine Patch 1.5 MG PATCH.TD72 TD ONE (07:11)
[2017-09-23] MEDS ORDERED: Acetaminophen IV 1,000 MG/100 ML INFUS..BTL IVPB ONE (07:12)
[2017-09-23] MEDS ORDERED: Famotidine 20 MG/2 ML VIAL IVP ONE (07:12)
[2017-09-23] MEDS ORDERED: Pregabalin 75 MG CAPSULE PO ONE (07:12)
--- NOTE | 2017-09-23 07:16 | History & Physical Report ---
Date of Encounter: 09/23/17 Time of Encounter: 07:15 24 Hour HP Update - Instructions Instructions: If the History and Physical is less than 30 days old and was completed prior to A.M. admission and or procedure and has NOT been updated on calendar day of procedure please complete this update prior to performing procedure. - Update Patient reports changes in Medical Condition: No Changes in examination, assessment, or condition: No Changes in Medication: No Preop tests/diagnostics Reviewed: Yes Pre-Op MRSA Screen: Negative Surgery Remains Indicated: Yes Consent for Planned Operative Procedure(s) Verified: Yes - Pre-Operative Checklist Preoperative Checklist Indicated: No Prophylactic Antibiotic Ordered: Yes Home Medications Include Beta Papa: No Beta Papa Taken Today (Day of Surgery): No Beta Papa Taken Yesterday (Day Prior to Surgery): No Is VTE Prophylaxis Indicated?: Yes
--- NOTE | 2017-09-23 07:29 | Anesthesia Evaluation PreOp ---
Date of Encounter: 09/23/17 Time of Encounter: 07:07 - Past History Planned Operation: L5-S1 PLIF Cardiac History: HTN Pulmonary History: Asthma, Other (Hx of PE) [employer]IAN [employer] WORKER History: Other (Radiculopathy; R >>LLE numbness & tingling. Anxiety/ Depression) Other Medical History: Bleeding (FActor V Leiden deficiency, Hx of PE) Anesthesia History: No Prior Anesthetic Complications, Past Anesthesia (Sinus surgery, Tubal Ligaiton) : No Test: Negative Alcohol Use: none Drug use: none Medications and Allergies FLUoxetine HCl [Prozac] 20 mg PO DAILY 01/02/17 [History] Lisinopril-HCTZ 10-12.5 [Prinzide 10-12.5] 1 tab PO DAILY 01/02/17 [History] Albuterol Neb [Proventil Neb] 2.5 mg IH Q4H PRN 09/23/17 [History] Albuterol Sulfate [Proair Hfa] 2 puff IH Q4H PRN 09/23/17 [History] Aspirin 81 mg PO DAILY 09/23/17 [History] Beclomethasone Diprop 40mcg [QVAR 40 mcg] 1 puff IH BID 09/23/17 [History] Buspirone HCl [Buspar] 10 mg PO BID 09/23/17 [History] Gabapentin [Neurontin] 600 mg PO TID 09/23/17 [History] Topiramate [Topiramate] 50 mg PO BID 09/23/17 [History] Xyzal 5 mg PO DAILY 09/23/17 [History] 3 Allergy/AdvReac Type Severity Reaction Status Date / Time cefdinir [From Omnicef] Allergy Hives Verified 09/23/17 06:50 chlorpheniramine Allergy Hives Verified 09/23/17 06:50 [From Triaminic Cold and Cough] dextromethorphan Allergy Hives Verified 09/23/17 06:50 [From Triaminic Cold and Cough] Penicillins Allergy Anaphylaxis Verified 09/23/17 06:50 pseudoephedrine Allergy Hives Verified 09/23/17 06:50 [From Triaminic Cold and Cough] - Meds/Allergy Pre-op Review Medications Reviewed: Yes Allergies Reviewed: Yes Beta Blockers on Current Med List: No Anesthesia Results - Labs Laboratory Tests 0806/28/17 06/28/17 16:23 09:28 09:28 WBC Hgb Hct Plt Count PT INR APTT D-Dimer 341 Factor V Leiden Interp HETEROZYGOUS A Sodium Potassium Chloride Carbon Dioxide BUN Creatinine Est GFR (Non-Af Amer) Glucose 158 H 09/13/17 09/13/17 09/13/17 15:20 15:20 15:20 WBC 6.8 Hgb 12.6 Hct 37.2 Plt Count 297 PT 10.3 INR 1.0 APTT 30.2 D-Dimer Factor V Leiden Interp Sodium 138 Potassium 3.7 Chloride 108 H Carbon Dioxide 23 BUN 23 H Creatinine 0.97 Est GFR (Non-Af Amer) > 60 Glucose Anesthesia Exam O2 Sat Height 1.7 m Height 1.7 m Height 1.7 m Weight 100.244 kg Weight 100.244 kg Weight 100.244 kg O2 Sat by Pulse Oximetry 98 O2 Sat by Pulse Oximetry 98 Vital Signs Temp Pulse Resp BP Pulse Ox 97.9 F 68 18 112/67 98 09/23/17 06:44 09/23/17 06:44 09/23/17 06:44 09/23/17 06:44 09/23/17 06:44 Height: 5'7" Weight: 221# BMI = 34.6 NPO (# of Hours): MNOc Pain Scale Used: Numeric (1 - 10) - HEENT Pupil (Motor): Pupils equal, EOMI Mallampati: II Teeth: Normal Oral Opening: Greater than 3 - [employer] LOC: Oriented [employer] Motor: Normal RUE, Normal LUE, Normal RLE, Normal LLE, Normal Face [employer] Sensory: Normal: RUE, LUE, RLE, LLE, Face - Cardiac Rhythm: Regular Murmur: None JVD: No - Pulmonary Breath Sounds: bilateral Clear Respiratory Effort: Symmetrical Anesthesia Assess/Plan ASA Score: 3 (FAtor V Leiden deficiency, ASthma, HTN, RAdiculopathy, Obesity) Modified Melissa Scale for Level of Consciousness: Cooperative, oriented, and tranquil Anesthetic Plan: General Monitoring Plan: Standard Monitors Recovery Plan: PACU Anes Supervising Prov Stmt: Pt seen/evaluated, R&B discussed, questions answered and consent obtained. Philippe Rios MD
[2017-09-23] MEDS ORDERED: *HR* Rocuronium Bromide 50 MG/5 ML VIAL ONE (07:36)
[2017-09-23] MEDS ORDERED: *HR* Propofol 200 MG/20 ML VIAL IVP ONE (07:36)
[2017-09-23] MEDS ORDERED: *HR* Midazolam HCl 2 MG/2 ML VIAL ONE (07:36)
[2017-09-23] MEDS ORDERED: Lidocaine -MPF 2% 2 ML VIAL ONE (07:36)
[2017-09-23] MEDS ORDERED: Lidocaine -MPF 4% 5 ML AMPUL ONE (07:36)
[2017-09-23] MEDS ORDERED: *HR* FentaNYL (PF) 100 MCG/2 ML VIAL ONE ×2 (07:36→11:43)
[2017-09-23] MEDS ORDERED: *HR* Succinylcholine 200 MG/10 ML VIAL IVP ONE (07:36)
[2017-09-23] MEDS ORDERED: *HR* PHENYLEPHRINE 1,000 MCG/10 ML SYRINGE IVP ONE ×2 (07:42→11:39)
[2017-09-23] MEDS ORDERED: *HR* Remifentanil 2 MG VIAL IVP ONE (07:43)
[2017-09-23] MEDS ORDERED: Bacitracin 50,000 UNIT, Polymyxin B Sulfate 500,000 UNIT, Sodium Chloride IRRigation 1,... IR ONE (07:45)
[2017-09-23] MEDS ORDERED: Lacri-Lube 3.5 GM TUBE ONE (07:48)
[2017-09-23] MEDS ORDERED: *HR* Promethazine 25 MG/ML VIAL IVP PRN (08:37)
[2017-09-23] MEDS ORDERED: *HR* OxyCODONE Immed Rel 5 MG TABLET PO PRN ×2 (08:37→13:36)
[2017-09-23] MEDS ORDERED: *HR* HYDROcodone/Acet 10/325 mg TABLET PO PRN (08:37)
[2017-09-23] MEDS ORDERED: *HR* HYDROmorphone 2 MG TABLET PO PRN (08:37)
[2017-09-23] MEDS ORDERED: Ondansetron 4 MG/2 ML VIAL ONE (11:13)
[2017-09-23] MEDS ORDERED: Dexamethasone 4 MG/ML VIAL ONE ×2 (11:13→11:55)
--- NOTE | 2017-09-23 12:10 | Orthopedic Operative Note ---
Date of procedure: 09/23/17 Pre-op diagnosis: Spondylolisthesis, spondylolysis, lumbar stenosis Post-op diagnosis: same Operation/Findings: Posterior lumbar interbody fusion L5-S1: The patient successfully underwent general endotracheal anesthesia. The patient was given antibiotics prior to the start of the procedure. Compression boots and stockings were used for deep vein thrombosis prophylaxis. A Shaw catheter was placed. Leads for neuro monitoring were placed on the upper and lower extremities. This included the cranium. The neuro monitoring personnel confirmed there were satisfactory readings prior to the start of the procedure. The patient was turned prone on the Darin table. The back was prepped and draped in the usual sterile fashion. An incision was was marked and centered over the involved L5-S1 levels in the mid line. The incision was deepened through the lumbar fascia. Bovie cautery and Grossman elevators were used to reflect the paraspinal musculature at the lateral extent of the transverse processes of the involved L5 -S1 levels. Anju clamps were placed over the L5 and S1 spinous processes. An intraoperative lateral fluoroscopy graft was obtained. A conversation was held between the surgeon and radiologist and both confirmed we had the correct operative levels. We then placed pedicle screws in standard fashion with the aid of fluoroscopy and anatomic landmarks. Briefly a starter awl was used. A gearshift was subsequently used to enter the pest control pilot hole via a transpedicular route into the vertebral body. The pest control pilot hole was tapped with an undersized instrument, and subsequently four 6.5 x 40 mm pedicle screws were placed bilaterally at the indicated L5 and S1 levels. The screws were tested with the aid of the neurologic monitoring staff via pedicle screw stimulation. All reading suggested there was no significant cortical wall breech. The screws were also evaluated fluoro- graphically and appeared to be in satisfactory position. We then turned our attention to the decompression portion of the procedure. We removed the supraspinous and interspinous ligaments and subsequently the insertion of the ligamentum flavum on the undersurface of the proximal L5 lamina was dislodged with a curette. We then removed the ligamentum flavum as well as undercut the L5-S1 facets at this L5-S1 level to decompress the lateral recesses. We also performed a L5 laminectomy. After the decompression, which was over and above that which was required to place the interbody graft, the foramen and traversing roots at this L5-S1 level were found to be free and patent. We also took part of the medial facets in order to aid in the decompression. We then protected the neural elements including the thecal sac and traversing nerve root on the right with a dural retractor. We made an annulotomy into the L5-S1 disc space and then removed entire disc material using Pituitary instruments. We trialed various size grafts after the endplates were prepared for graft insertion. A 10 x 26 enter body graft fit well within the L5-S1 disc space. We obtained some bone from the right posterior superior iliac spine through us a separate incision and combined with this with the bone which we had saved from the laminectomy portion of the procedure. This autograft bone was first placed in the anterior portion of the L5-S1 disc space and additional bone was placed within the interbody graft spacer. We then placed the interbody graft spacer obliquely across the L5-S1 disc space towards the midline while protecting the neural elements with a root retractor. When the graft was found to be in satisfactory position the vender was removed. We then copiously irrigated the wound. We then decorticated the L5 transverse processes and proximal portion of the sacrum as well as the L5-S1 facet joints of the involved levels to aid in the posterolateral fusion. We placed autograft bone in the lateral gutters over these regions. We then placed rods within the screw heads of the involved levels and first locked the distal screws and then subsequently locked the proximal screws so as to improve and reduce the spondylolisthesis previously seen. We then closed the wound in layers with 1 Vicryl for the fascia, 2-0 Vicryl. Subcutaneous tissue, and Dermabond was used for skin closure. Sterile dressings were placed over the wound. The patient was turned supine on a hospital bed and extubated. All sponge instruments and needle counts were correct at the end of the procedure. The patient tolerated the procedure well without complications. Anesthesia: GETA Surgeon: Jj Ardon Jr Was there an assistant editor present: No Estimated blood loss (cc): 125 Specimen: none Condition: stable Disposition: PACU
[2017-09-23] MEDS: MORPHINE SUL Oral CONC 10 MG/0.5 ML ORAL.SYG SL PRN ×2 (12:31→12:40)
[2017-09-23] MEDS ORDERED: *HR* OxyCODONE Immed Rel 5 MG TABLET PO ONE (12:54)
--- NOTE | 2017-09-23 13:14 | Anesthesia Evaluation Post Op ---
Date of Encounter: 09/23/17 Time of Encounter: 13:12 - Vital Signs Vital Signs: vss - Lungs Lungs: Clear Ascult./Percussion - Airway Airway: Non-obstructed - Cardiovascular Baseline Rhythm - Mental Status Mental Status: Asleep with brisk response to light stimulation - Pain Pain Scale used: Hemalatha (Faces) - Nausea Vomiting Nausea Vomiting: Not Present - Hydration Hydration: Ice chips - Discharge PostOp Status: Transfer Patient to floor
[2017-09-23] MEDS ORDERED: Acetaminophen 325 MG TABLET PO PRN (13:36)
[2017-09-23] MEDS ORDERED: Naloxone 0.4 MG/ML INJ IVP PRN (13:36)
[2017-09-23] MEDS ORDERED: Ondansetron 4 MG/2 ML VIAL IVP PRN (13:36)
[2017-09-23] MEDS ORDERED: Albuterol 2.5 MG/3 ML NEBULIZER IH PRN (13:36)
[2017-09-23] MEDS ORDERED: *HR* HYDROcodone/Acet 5/325 mg TABLET PO PRN (13:36)
[2017-09-23] MEDS: Clindamycin 600 MG/50 ML 600 MG/50 ML IV.SOLN IVPB SCH (15:09)
[2017-09-23] MEDS ORDERED: Clindamycin 600 MG/50 ML 600 MG/50 ML IV.SOLN IVPB SCH (16:00)
[2017-09-23] MEDS: Topiramate 25 MG TABLET PO SCH (20:49)
[2017-09-23] MEDS: *HR* OxyCODONE Immed Rel 5 MG TABLET PO PRN (20:53)
[2017-09-23] MEDS: Beclomethasone 40mcg MDI IH SCH (21:42)
[2017-09-24] MEDS: Clindamycin 600 MG/50 ML 600 MG/50 ML IV.SOLN IVPB SCH (00:56)
[2017-09-24] MEDS: Ringers Solution, Lactated 1,000 ML IVC SCH ×3 (00:57→11:30)
[2017-09-24] MEDS: *HR* OxyCODONE Immed Rel 5 MG TABLET PO PRN ×4 (06:36→21:02)
[2017-09-24] MEDS: Beclomethasone 40mcg MDI IH SCH ×2 (07:55→22:24)
[2017-09-24] MEDS: Aspirin 81 MG TAB.CHEW PO SCH (08:59)
[2017-09-24] MEDS: FLUoxetine 20 MG CAPSULE PO SCH (08:59)
[2017-09-24] MEDS: Topiramate 25 MG TABLET PO SCH ×2 (08:59→20:24)
[2017-09-24] MEDS ORDERED: LEVOCETIRIZINE PO SCH (09:00)
--- NOTE | 2017-09-24 15:29 | Orthopedics Progress Note ---
Date of Encounter: 09/24/17 Time of Encounter: 10:00 - Assessment and Plan (1) Spondylolisthesis Current Visit: Yes Status: Chronic Qualifiers: Spinal region: unspecified Qualified Code(s): M43.10 - Spondylolisthesis, site unspecified (2) Spondylolysis Current Visit: Yes Status: Chronic (3) Lumbar stenosis Current Visit: Yes Status: Chronic Qualifiers: Neurogenic claudication status: unspecified Qualified Code(s): M48.061 - Spinal stenosis, lumbar region without neurogenic claudication (4) Status post lumbar spinal fusion Current Visit: Yes Status: Acute Subjective Principal diagnosis: Spondylolisthesis, spondylolysis, lumbar stenosis Interval history: POD#1 09/23/17 Posterior lumbar interbody fusion L5-S1 for Spondylolisthesis, spondylolysis, lumbar stenosis Dr. Ardon. The patient is without complaints. Afebrile vital signs are stable. Incision is clean dry and intact. Neurovascularly intact with regard to bilateral lower extremities. Fires all upper and lower extremity motor groups. Assessment: Stable postoperative. Plan: Reviewed postoperative restrictions and precautions. Patient verbalized understanding. Brace applied correctly and patient aware to apply with activity. Mobilize with therapy Continue analgesics as needed Discharge planning - awaiting therapy recommendations Radiographs pending Objective Vital signs: Vital Signs Temp Pulse Resp BP Pulse Ox 09/24/17 14:40 98.6 F 90 18 91/57 99 09/24/17 10:25 98.5 F 70 18 102/62 99 09/24/17 08:00 18 99 09/24/17 06:34 98.4 F 62 18 104/63 99 09/24/17 03:26 98.3 F 71 14 107/66 97 09/23/17 22:59 99.2 F 66 14 118/70 95 09/23/17 21:43 17 99 09/23/17 20:18 99.5 F 90 16 102/62 96 09/23/17 17:02 98.0 F 85 16 94/57 97 09/23/17 16:01 98.4 F 96 16 103/64 97 Intake and Output 09/23/17 09/24/17 09/24/17 23:59 07:59 15:59 Intake Total 400 / 400 0 / 0 240 / 240 Output Total 2225 / 2225 900 / 900 400 / 400 Balance -1825 / -1825 -900 / -900 -160 / -160 Intake: IV Fluids 50 / 50 Cleocin Premix 600 MG/50 ML 600 50 / 50 mg In 50 ml @ 50 mls/hr IVPB Q8HR [facility] Rx#:[id number] Oral 350 / 350 0 / 0 240 / 240 Output: Urine 400 / 400 Catheter 2225 / 2225 900 / 900 Other: Meal Lunch Percent of Meal Consumed 100% - VTE Documentation of Mechanical Device: Graduated compression elastic hosiery Consult Discharge Plan - Plan Referrals: Alissa Blake, [employer] [Primary Care Provider] -
[2017-09-24] MEDS: Loratadine 10 MG TABLET PO SCH (16:24)
[2017-09-25] MEDS: *HR* OxyCODONE Immed Rel 5 MG TABLET PO PRN ×5 (02:01→21:36)
--- NOTE | 2017-09-25 07:57 | Discharge Summary ---
Orders not resulted at time of discharge: Pending orders 09/23/17 XR fluoroscopy <1 hr [XR] Routine 09/26/17 12:11 XR lumbar spine 2-3V [XR] Routine Date of Encounter: 09/26/17 Time of Encounter: 07:54 - Discharge Diagnosis (1) Spondylolisthesis Priority: Primary Status: Chronic Qualifiers: Spinal region: unspecified Qualified Code(s): M43.10 - Spondylolisthesis, site unspecified (2) Spondylolysis Priority: Primary Status: Chronic (3) Lumbar stenosis Priority: Primary Status: Chronic Qualifiers: Neurogenic claudication status: unspecified Qualified Code(s): M48.061 - Spinal stenosis, lumbar region without neurogenic claudication (4) Status post lumbar spinal fusion Priority: Primary Status: Acute - Hospital Course Hospital course: Ms. Alvarenga is a 32 year old female s/p 09/23/17 Posterior lumbar interbody fusion L5-S1 for Spondylolisthesis, spondylolysis, lumbar stenosis Dr. Ardon. The patient had an uneventful postoperative course. Progressed from intravenous analgesic needs to oral analgesic needs only. Remained neurovascularly intact and mobilized satisfactorily. All intraoperative and/or postoperative radiographic studies were satisfactory. Patient is discharged with plan for rehabilitation and follow-up in 2 weeks post discharge on analgesic medication and patient's home medications. - Time Spent with Patient Total time spent providing and/or coordinating discharge services: - Discharge Medications Prescriptions: OxyCODONE Immed Rel [Roxicodone 5 MG] 5 mg PO Q6H PRN 7 Days #28 tablet PRN Reason: Severe Pain Home Medications: FLUoxetine HCl [Prozac] 20 mg PO DAILY 01/02/17 [History] Lisinopril-HCTZ 10-12.5 [Prinzide 10-12.5] 1 tab PO DAILY 01/02/17 [History] Albuterol Neb [Proventil Neb] 2.5 mg IH Q4H PRN 09/23/17 [History] Albuterol Sulfate [Proair Hfa] 2 puff IH Q4H PRN 09/23/17 [History] Aspirin 81 mg PO DAILY 09/23/17 [History] Beclomethasone Diprop 40mcg [QVAR 40 mcg] 1 puff IH BID 09/23/17 [History] Buspirone HCl [Buspar] 10 mg PO BID 09/23/17 [History] Gabapentin [Neurontin] 600 mg PO TID 09/23/17 [History] Topiramate 50 mg PO BID 09/23/17 [History] Xyzal 5 mg PO DAILY 09/23/17 [History] OxyCODONE Immed Rel [Roxicodone 5 MG] 5 mg PO Q6H PRN 7 Days #28 tablet [Rx] Allergies/Adverse Reactions: 3 Allergy/AdvReac Type Severity Reaction Status Date / Time cefdinir [From Omnicef] Allergy Hives Verified 09/23/17 06:50 chlorpheniramine Allergy Hives Verified 09/23/17 06:50 [From Triaminic Cold and Cough] dextromethorphan Allergy Hives Verified 09/23/17 06:50 [From Triaminic Cold and Cough] Penicillins Allergy Anaphylaxis Verified 09/23/17 06:50 pseudoephedrine Allergy Hives Verified 09/23/17 06:50 [From Triaminic Cold and Cough] Date of admission: 09/23/17 13:17 Primary care physician: Alissa Blake CNP Consults: 09/23/17 13:36 Consult to Physical Therapy [CONS] Routine Comment: Evaluate, develop and implement POC Reason for Consult: post operative rehab Does patient have active BEDREST order?: No Is patient medically & hemodynamically stable?: Yes Patient assessed for mobility or mobilized this visit?: No Consult to Spine Navigator [CONS] [CONS] Routine - VTE Documentation of Mechanical Device: Graduated compression elastic hosiery - Impressions ITS Impressions Lumbar Spine X-Ray 09/23/17 00:00 IMPRESSION: Postsurgical changes demonstrating fusion of the L5-S1 level with no gross abnormality given limitations of the exam. D/ / 09/24/2017 07:08:10 Jesus Vuong MD / terry Interpreting Provider: Jesus Vuong MD - Patient Status Disposition: Home, Self-Care Condition: Good Functional capacity at discharge: uses cane/walker Overall status at discharge: patient is progressing back to baseline - Discharge Instructions Follow Up With: Alissa Blake CNP [Primary Care Provider] - Jj Ardon Jr, MD [Partnered Physician] - Additional Instructions: Discharge Instructions: Lumbar Please call [facility] ([phone]), your Primary Care Physician, or report to the ER if you have any of the following symptoms: Fever greater that 101.5, increased pain/redness/drainage/odor for your incision site or any other concerning symptoms. ACTIVITY * May Shower * No Tub Baths * No lifting greater than 10 pounds * No Smoking * No Swimming * No off Ground Activities (Running, Climbing, Ladders, Horseback Riding) * No Driving * Wear Back Brace when up walking if lumbar fusion done MEDICATIONS: Upon discharge resume your home medications. Take all the medications as prescribed. Take a stool softener if taking narcotic pain medications. Stool softeners are only effective if you drink enough fluids. Drink 6-8 glass of water or fluids a day, unless this is not allowed for another health problem. Despite using stool softeners, if you haven't had a bowel movement in 3 days, please switch to a gentle laxative. Gentle laxatives are sold over the counter. You should have a bowel movement within 24 hours, if not call the office. You will be discharged from the hospital with a prescription for pain medication. You are encouraged to decrease the use of narcotic pain medication as tolerated. Should you require a refill, please call the office. It is best to call 48-72 hours in advance of needing a prescription refill so you don't run out of medication. WOUND CARE: Remove Dressing Tomorrow. Leave incision open to air. Pat dry when you get out of the shower. FOLLOW-UP: Please follow up with your surgeon in the orthopedic clinic in 2 weeks from the day of surgery. References: [employer] ([email or web address]) - Diet and Activity Activity: as per physical therapy Diet: advance to your usual diet
--- NOTE | 2017-09-25 09:31 | Orthopedics Progress Note ---
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 Ardon. The patient c/o increased low back pain over last night. Low grade fever this morning, vital signs are stable. Patient noted to be short of breath with intermittent cough. Incision is clean dry and intact. Neurovascularly intact with regard to bilateral lower extremities. Fires all upper and lower extremity motor groups. Assessment: Stable postoperative. Plan: Reviewed postoperative restrictions and precautions. Patient verbalized understanding. Brace applied correctly and patient aware to apply with activity. Mobilize with therapy Continue analgesics as needed Discharge planning - home with self care Radiographs pending CXR for cough and fever. Patient encouraged to continue IS. Objective Vital signs: Vital Signs Temp Pulse Resp BP Pulse Ox 09/25/17 06:51 101.1 F H 106 18 117/74 98 09/24/17 23:37 99.1 F 94 17 113/68 98 09/24/17 22:25 16 99 09/24/17 19:11 98.7 F 76 16 105/67 100 09/24/17 16:20 92 110/68 09/24/17 14:40 98.6 F 90 18 91/57 99 09/24/17 10:25 98.5 F 70 18 102/62 99 Intake and Output 09/24/17 09/25/17 09/25/17 23:59 07:59 15:59 Intake Total 120 / 120 100 / 100 Output Total 1650 / 1650 Balance -1530 / -1530 100 / 100 Intake: Oral 120 / 120 100 / 100 Output: Urine 1650 / 1650 Other: Meal Dinner Breakfast Percent of Meal Consumed 100% 5% - VTE Documentation of Mechanical Device: Graduated compression elastic hosiery Consult Discharge Plan - Plan Additional Instructions: Discharge Instructions: Lumbar Please call [facility] ([phone]), your Primary Care Physician, or report to the ER if you have any of the following symptoms: Fever greater that 101.5, increased pain/redness/drainage/odor for your incision site or any other concerning symptoms. ACTIVITY * May Shower * No Tub Baths * No lifting greater than 10 pounds * No Smoking * No Swimming * No off Ground Activities (Running, Climbing, Ladders, Horseback Riding) * No Driving * Wear Back Brace when up walking if lumbar fusion done MEDICATIONS: Upon discharge resume your home medications. Take all the medications as prescribed. Take a stool softener if taking narcotic pain medications. Stool softeners are only effective if you drink enough fluids. Drink 6-8 glass of water or fluids a day, unless this is not allowed for another health problem. Despite using stool softeners, if you haven't had a bowel movement in 3 days, please switch to a gentle laxative. Gentle laxatives are sold over the counter. You should have a bowel movement within 24 hours, if not call the office. You will be discharged from the hospital with a prescription for pain medication. You are encouraged to decrease the use of narcotic pain medication as tolerated. Should you require a refill, please call the office. It is best to call 48-72 hours in advance of needing a prescription refill so you don't run out of medication. WOUND CARE: Remove Dressing Tomorrow. Leave incision open to air. Pat dry when you get out of the shower. FOLLOW-UP: Please follow up with your surgeon in the orthopedic clinic in 2 weeks from the day of surgery. References: [employer] ([email or web address]) Referrals: Alissa Blake CNP [Primary Care Provider] - Jj Ardon Jr, MD [Partnered Physician] - Prescriptions: OxyCODONE Immed Rel [Roxicodone 5 MG] 5 mg PO Q6H PRN 7 Days #28 tablet PRN Reason: Severe Pain
[2017-09-25] MEDS: Beclomethasone 40mcg MDI IH SCH ×2 (10:43→22:05)
[2017-09-25] MEDS: Aspirin 81 MG TAB.CHEW PO SCH (10:50)
[2017-09-25] MEDS: FLUoxetine 20 MG CAPSULE PO SCH (10:50)
[2017-09-25] MEDS: Topiramate 25 MG TABLET PO SCH ×2 (10:50→21:33)
[2017-09-25] MEDS: Loratadine 10 MG TABLET PO SCH (10:50)
[2017-09-25] MEDS: Fluticasone Propionate Nasal 50 MCG/SPRAY BOTTLE NS SCH (18:38)
[2017-09-26] MEDS: *HR* OxyCODONE Immed Rel 5 MG TABLET PO PRN ×2 (07:38→11:37)
[2017-09-26] MEDS: Aspirin 81 MG TAB.CHEW PO SCH (07:39)
[2017-09-26] MEDS: FLUoxetine 20 MG CAPSULE PO SCH (07:39)
[2017-09-26] MEDS: Loratadine 10 MG TABLET PO SCH (07:39)
[2017-09-26] MEDS: Topiramate 25 MG TABLET PO SCH (07:39)
[2017-09-26] MEDS: Fluticasone Propionate Nasal 50 MCG/SPRAY BOTTLE NS SCH (09:55)
[2017-09-26] MEDS: Beclomethasone 40mcg MDI IH SCH (10:49)
[2017-09-26 11:19] VITALS: BP 101/63
--- NOTE | 2017-09-26 14:48 | Orthopedics Progress Note ---
Date of Encounter: 09/26/17 Time of Encounter: 08:30 - Assessment and Plan (1) Spondylolisthesis Status: Chronic Qualifiers: Spinal region: unspecified Qualified Code(s): M43.10 - Spondylolisthesis, site unspecified (2) Spondylolysis Status: Chronic (3) Lumbar stenosis Status: Chronic Qualifiers: Neurogenic claudication status: unspecified Qualified Code(s): M48.061 - Spinal stenosis, lumbar region without neurogenic claudication (4) Status post lumbar spinal fusion Status: Acute Subjective Principal diagnosis: Spondylolisthesis, spondylolysis, lumbar stenosis Interval history: POD#2 09/23/17 Posterior lumbar interbody fusion L5-S1 for Spondylolisthesis, spondylolysis, lumbar stenosis Dr. Ardon. The patient back pain has improved. Low grade fever yesterday morning has resolved, vital signs are stable. Chest x-ray yesterday was clear with no sign of cardiopulmonary abnormality. Shortness of breath and cough have resolved with reintroduction of patient's home meds Flonase. Incision is clean dry and intact. Neurovascularly intact with regard to bilateral lower extremities. Fires all upper and lower extremity motor groups. Assessment: Stable postoperative. Plan: Reviewed postoperative restrictions and precautions. Patient verbalized understanding. Brace applied correctly and patient aware to apply with activity. Mobilize with therapy Continue analgesics as needed Discharge planning - home with self care today Radiographs from 09/25/17 reviewed with appropriate hardware positioning no change since surgery. Objective Vital signs: Vital Signs Temp Pulse Resp BP Pulse Ox 09/26/17 11:18 97.7 F 72 17 101/63 97 09/26/17 10:49 16 97 09/26/17 07:58 99.1 F 109 17 111/69 98 09/26/17 02:53 98.9 F 78 16 129/73 99 09/25/17 23:30 99.5 F 90 18 108/66 97 09/25/17 22:05 15 98 09/25/17 18:47 99.0 F 98 18 110/71 100 09/25/17 14:56 98.4 F 78 18 116/69 97 Intake and Output 09/25/17 09/26/17 09/26/17 23:59 07:59 15:59 Intake Total 1020 / 1020 0 / 0 Output Total 700 / 700 700 / 700 Balance 320 / 320 -700 / -700 Intake: Oral 1020 / 1020 0 / 0 Output: Urine 700 / 700 700 / 700 Other: Meal Dinner Percent of Meal Consumed 75% - VTE Documentation of Mechanical Device: Graduated compression elastic hosiery Consult Discharge Plan - Plan Additional Instructions: Discharge Instructions: Lumbar Please call [facility] ([phone]), your Primary Care Physician, or report to the ER if you have any of the following symptoms: Fever greater that 101.5, increased pain/redness/drainage/odor for your incision site or any other concerning symptoms. ACTIVITY * May Shower * No Tub Baths * No lifting greater than 10 pounds * No Smoking * No Swimming * No off Ground Activities (Running, Climbing, Ladders, Horseback Riding) * No Driving * Wear Back Brace when up walking if lumbar fusion done MEDICATIONS: Upon discharge resume your home medications. Take all the medications as prescribed. Take a stool softener if taking narcotic pain medications. Stool softeners are only effective if you drink enough fluids. Drink 6-8 glass of water or fluids a day, unless this is not allowed for another health problem. Despite using stool softeners, if you haven't had a bowel movement in 3 days, please switch to a gentle laxative. Gentle laxatives are sold over the counter. You should have a bowel movement within 24 hours, if not call the office. You will be discharged from the hospital with a prescription for pain medication. You are encouraged to decrease the use of narcotic pain medication as tolerated. Should you require a refill, please call the office. It is best to call 48-72 hours in advance of needing a prescription refill so you don't run out of medication. WOUND CARE: Remove Dressing Tomorrow. Leave incision open to air. Pat dry when you get out of the shower. FOLLOW-UP: Please follow up with your surgeon in the orthopedic clinic in 2 weeks from the day of surgery. References: [employer] [place] [employer] ([email or web address]) Referrals: Alissa Blake CNP [Primary Care Provider] - Jj Ardon Jr, MD [Partnered Physician] - Prescriptions: OxyCODONE Immed Rel [Roxicodone 5 MG] 5 mg PO Q6H PRN 7 Days #28 tablet PRN Reason: Severe Pain
== END 2017-09-26 12:41 | disposition home or self-care (01) | DRG 460 ==
LOC: SAMDAY 06:15 → 3NENU 13:17
PROVIDERS: ADMIT Orthopaedic Surgery Orthopaedic Surgery of the Spine; ATTEND Orthopaedic Surgery Orthopaedic Surgery of the Spine